=== PATIENT | female | born 1985 | race American Indian/Alaskan Native ===

== ENCOUNTER 2022-01-23 22:20 | Emergency (ER) | payer SELFPAY ==
[2022-01-24 02:06] VITALS: BP 158/83
== END 2022-01-24 09:29 | disposition left against medical advice (07) ==
LOC: ED 22:20
DX: R07.9 Chest pain, unspecified (principal); R10.9 Unspecified abdominal pain; Z53.21 Procedure and treatment not carried out due to patient leaving prior to being seen by health care provider